=== PATIENT | male | born 1985 | race Caucasian/White ===

== ENCOUNTER 2016-05-17 18:54 | Emergency (ER) | payer OTHER ==
[~2016-05-17] VITALS: Ht 180.3 cm; Wt 59.0 kg
[2016-05-17] MEDS ORDERED: SODIUM CHLORIDE 0.9% 500 ML IVB ONE (19:59)
[2016-05-17 20:00] LABS: Basophils # (auto) 0.1 uL; Basophils % (auto) 0.6 % (0.0-2.0); Eosinophils # (auto) 0.1 uL; Eosinophils % (auto) 0.7 % (0.0-7.0); Hematocrit 43.9 % (41.0-53.0); Hemoglobin 14.6 g/dL (13.5-17.5); Lymphocytes # (auto) 1.6 uL; Lymphocytes % (auto) 14.1 % (10.0-50.0); Mean Corpuscular Hemoglobin 30.3 pg (28.0-32.0); Mean Corpuscular Hgb Conc. 33.2 g/dL (32.0-36.0); Mean Corpuscular Volume 91.4 fL (80.0-100.0); Mean Platelet Volume 8.9 fL (7.4-10.4); Monocytes # (auto) 0.4 uL; Monocytes % (auto) 3.9 % (0.0-12.0); Neutrophils # (auto) 8.9 uL; Neutrophils % (auto) 80.7 % (37.0-80.0); Platelet Count (auto) 235 10^3/uL (140-450); Red Cell Distribution Width 13.5 % (11.6-16.0)
[2016-05-17] MEDS ORDERED: KETOROLAC TROMETH 30 MG/ML 1ML VIAL IV ONE (20:00)
[2016-05-17] MEDS ORDERED: HYDROmorphone HCL 2 MG/ML VL IV ONE (20:00)
[2016-05-17] MEDS ORDERED: ONDANSETRON HCL 4 MG/2 ML VIAL IV ONE (20:00)
[2016-05-17 20:15] LABS: INR 1.15 (0.9-1.15); Partial Thromboplastin Time 26.1 sec (22.64-33.71); Prothrombin Time 11.8 sec (9.37-12.3)
[2016-05-17 20:36] LABS: Albumin 4.2 g/dL (3.4-5.0); Anion Gap 8 (5-15); BUN/Creatinine Ratio 8.1; Blood Urea Nitrogen 7 mg/dL (7-18); Calcium 8.6 mg/dL (8.5-10.1); Carbon Dioxide 26 mmol/L (21-32); Chloride 107 mmol/L (98-107); GFR African American 132 mL/min; GFR Non-African American 109 mL/min; Glucose 99 mg/dL (74-106); Magnesium 2.2 mg/dL (1.6-2.6); Potassium 4.1 mmol/L (3.5-5.1); Sodium 141 mmol/L (136-145)
[2016-05-17 20:44] LABS: Amylase 196 U/L (25-115)
[2016-05-17 20:46] LABS: Alkaline Phosphatase 75 U/L (45-117); Aspartate Aminotransferase 17 U/L (15-37); Bilirubin, Total 0.9 mg/dL (0.2-1.0); Total Protein 7.7 g/dL (6.4-8.2)
[2016-05-17 21:59] VITALS: BP 127/55
[2016-05-18 00:20] LABS: Urine Bilirubin Negative (Negative); Urine Color Red (Yellow); Urine Glucose Normal (Normal); Urine Ketone Negative (Negative); Urine Mucus FEW (None Seen); Urine Nitrite Negative (Negative); Urine RBC 3654 /hpf (0 - 3)
[2016-05-18 00:22] LABS: Urine Blood 3+ /uL (Negative)
[2016-05-18] MEDS ORDERED: cefTRIAXone 1GM/50ML D5W 50 ML IV ONE (00:45)
== END 2016-05-18 01:31 | disposition home or self-care (01) ==
LOC: ER 18:54
DX: N20.0 Calculus of kidney (principal); N39.0 Urinary tract infection, site not specified; F12.10 Cannabis abuse, uncomplicated
CPT/HCPCS: 36415; 70450; 74176; 80053; 81001; 82150; 83605; 83690; 83735; 84484; 85025; 85610; 85730; 87040; 93005; 94761; 96361; 96365; 96375; 99285; J0696; J1170; J1885; J2405